=== PATIENT | female | born 1995 | race American Indian/Alaskan Native ===

== ENCOUNTER 2017-05-09 12:15 | Inpatient (IN) | payer MEDICAID ==
[2017-05-09] MEDS ORDERED: NITRATEST PAPER MC ONE (12:53)
[2017-05-09] MEDS ORDERED: MINERAL OIL PO PRN (14:10)
[2017-05-09] MEDS ORDERED: XYLOCAINE 2% INFILTRATI ONE (14:10)
[2017-05-09] MEDS ORDERED: BRETHINE SUB-Q PRN (14:10)
[2017-05-09] MEDS ORDERED: ePHEDrine SULFATE IV PRN (14:10)
[2017-05-09] MEDS ORDERED: STADOL IV PRN (14:10)
[2017-05-09] MEDS ORDERED: BRETHINE IVP PRN (14:10)
[2017-05-09] MEDS ORDERED: SUBLIMAZE IV PRN (14:10)
[2017-05-09 15:00] LABS: Hemoglobin 10.8 gm/dl (10.1-14.3); Mean Corpuscular HGB Conc 35 % (30-34); Mean Corpuscular Hemoglobin 31 pg (28-32); Mean Corpuscular Volume 89 fl (79-97); Platelet Count 359 K/mm3 (140-440); Red Blood Count 3.48 M/mm3 (3.65-5.03); Red Cell Distribution Width 13.9 % (13.2-15.2); White Blood Count 15.9 K/mm3 (4.5-11.0)
[2017-05-09] MEDS ORDERED: PITOCin/NS 30 UNIT/500ML 30 UNITS/500 ML BAG IV SCH (15:00)
[2017-05-09] MEDS ORDERED: LACTATED RINGERS 1,000 ML IV SCH (15:00)
[2017-05-09] MEDS ORDERED: PITOCin/NS 20 UNIT/1000ML DRIP 20 UNITS/1,000 ML BAG IV SCH (15:00)
--- NOTE | 2017-05-09 15:13 | History and Physical Report ---
History of Present Illness Date of examination: 05/09/17 Date of admission: 05/09/17 12:16 Chief complaint: contractions History of present illness: This is a 22 yo at 37+0 weeks admitted to labor for active labor. She began mariano last night. Patient c/o leaking . Her OB course at [facility] began late at 21 weeks and non compliance with only 3 visits. She has anemia on iron and severe eczema with creme. She has close interval conception. She has a hx of IUGR. Past History Past Medical History: other (eczema) Past Surgical History: no surgical history ADVERTISING PHOTOGRAPHER History: chlamydia, herpes Family/Genetic History: other (Kidney ) Social history: single, other (previous marijuana usage). denies: smoking, alcohol abuse - Obstetrical History Expected Date of Delivery: 05/30/17 Actual Gestation: 37 Week(s) 0 Day(s) : 7 Para: 7 Hx # Term Pregnancies: 2 Number of Pregnancies: 0 Spontaneous Abortions: 1 Induced : 3 Number of Living Children: 2 Medications and Allergies Allergies Allergy/AdvReac Type Severity Reaction Status Date / Time No Known Allergies Allergy Verified 07/12/15 18:08 Home Medications Medication Instructions Recorded Confirmed Last Taken Type Acetaminophen [Acetaminophen ER 650 mg PO Q8HR PRN #30 tablet.er 07/12/15 Unknown Rx TAB] Nitrofurantoin [place]/M-Cryst 100 mg PO Q12HR #14 capsule 07/12/15 01/13/16 Unknown Rx [Macrobid CAP] Ondansetron [Zofran Odt] 4 mg PO Q4H #30 tab.rapdis 07/12/15 01/13/16 Unknown Rx Vit-Fe Fumar-FA [ 1 tab PO QDAY #90 tablet 07/12/15 01/13/16 1 Day Ago Rx Vitamin] 1 tab Ferrous Sulfate [Feosol 325 MG tab] 325 mg PO BID #60 tablet 01/14/16 Unknown Rx Ibuprofen [Motrin 600 MG tab] 600 mg PO Q6HR PRN #40 tablet 01/14/16 Unknown Rx Active Meds: Active Medications Butorphanol Tartrate (Stadol) 2 mg IV Q2H PRN PRN Reason: Pain , Severe (7-10) Fentanyl (Sublimaze) 100 mcg IV Q2H PRN PRN Reason: Labor Pain Lactated Ringer's (Lactated Ringers) 1,000 mls @ 125 mls/hr IV DIRECT OTTO Last Admin: 05/09/17 14:53 Dose: 125 mls/hr Oxytocin/Sodium Chloride (Pitocin/Ns 20 Unit/1000ml Drip) 20 units in 1,000 mls @ 125 mls/hr IV DIRECT OTTO Oxytocin/Sodium Chloride (Pitocin/Ns 30 Unit/500ml) 30 units in 500 mls @ 1 mls /hr IV TITR OTTO; 1 MILLIUNITS/MIN PRN Reason: Protocol Mineral Oil (Mineral Oil) 30 ml PO QHS PRN PRN Reason: Constipation Review of Systems All systems: negative Genitourinary: contractions - Vital Signs Vital signs: Vital Signs Pulse BP Pulse Ox 83 112/67 99 05/09/17 12:29 05/09/17 12:29 05/09/17 12:29 Temp Pulse Resp BP Pulse Ox 98.5 F 68 16 112/67 99 05/09/17 12:32 05/09/17 13:28 05/09/17 12:32 05/09/17 12:32 05/09/17 13:28 - Physical Exam Breasts: Positive: deferred Cardiovascular: Regular rate, Normal S1 Lungs: Positive: Clear to auscultation, Normal air movement Abdomen: Positive: normal appearance, soft, normal bowel sounds. Negative: distention, tenderness Genitourinary (Female): Positive: normal external genitalia, normal perenium Uterus: Positive: normal size, normal contour Anus/Rectum: Positive: normal perianal skin Extremities: Positive: normal Deep Tendon Reflex Grade: Normal +2 - Obstetrical FHR: category 1 Uterine Contraction Monitor Mode: External Cervical Dilatation: 9 Cervical Effacement Percentage: 100 Uterine Contraction Pattern: Regular Uterine Tone Measurement Phase: Contraction Uterine Contraction Intensity: Moderate Results Result Diagrams: 05/09/17 14:34 Abnormal lab results 05/09/17 Range/Units 14:34 WBC 15.9 H (4.5-11.0) K/mm3 RBC 3.48 L (3.65-5.03) M/mm3 MCHC 35 H (30-34) % All other labs normal. Assessment and Plan A/P IUP 37 weeks active labor GBS neg initial lbas, IVF expect vaginal delivery
--- NOTE | 2017-05-09 15:42 | Procedure Note ---
OB Delivery Note - Delivery Date of Delivery: 05/09/17 Surgeon: DANUTA STEPHENS Estimated blood loss: 300cc - Vaginal Delivery presentation: vertex Delivery position: OA Intrapartum events: precipitous labor- <3hr Delivery induction: none Delivery augmentation: rupture of membranes Delivery monitor: none Route of delivery: Delivery placenta: spontaneous Delivery cord: 3 umbilical vessels Episiotomy: none Delivery laceration: none Anesthesia: none Delivery comments: Patient was noted to be c/c/+1 after arom clear fluid. Patient delivered viable female at 1520 in oa presentation pushing 2 x easily reduced shoulders. baby weighting 5 pounds 1.8 oz. The placenta delivered spontaneously intact with 3 vessel cord . Survery of perineum and vagina revealed no lacs. EBL 300cc. Placenta sent to pathology for diagnosis small for gestational age. Patient tolerated procedure well. Bonding with baby. - Infant A at 1 minute: 8 at 5 minutes: 9 Infant Gender: Female
[2017-05-09] MEDS ORDERED: PHENERGAN PO PRN (15:43)
[2017-05-09] MEDS ORDERED: PHENERGAN PR PRN (15:43)
[2017-05-09] MEDS ORDERED: TUCKS PAD TP PRN (15:43)
[2017-05-09] MEDS ORDERED: NORCO 5/325 PO PRN (15:43)
[2017-05-09] MEDS ORDERED: BENADRYL PO PRN (15:43)
[2017-05-09] MEDS ORDERED: MILK OF MAGNESIA PO PRN (15:43)
[2017-05-09] MEDS ORDERED: DULCOLAX PR PRN (15:43)
[2017-05-09] MEDS ORDERED: ZOFRAN IV PRN (15:43)
[2017-05-09] MEDS ORDERED: LANSINOH TP PRN (15:43)
[2017-05-09] MEDS ORDERED: TYLENOL PO PRN (15:43)
[2017-05-09] MEDS ORDERED: TORADOL IV PRN (15:43)
[2017-05-09] MEDS ORDERED: SODIUM CHLORIDE FLUSH SYRINGE 10 ML IV SCH (16:00)
[2017-05-09] MEDS ORDERED: PRENATAL VITAMIN PO SCH (16:00)
[2017-05-09 16:17] LABS: Bilirubin,Urine NEG (Negative); Blood,Urine NEG (Negative); Ketones,Urine NEG (Negative); Leukocyte Esterase,Urine TR (Negative); Nitrite,Urine NEG (Negative)
[2017-05-09] MEDS ORDERED: SENOKOT S PO SCH (17:00)
[2017-05-09] MEDS: MOTRIN PO SCH (18:50)
[2017-05-09] MEDS: PERCOCET 5/325 PO PRN (18:51)
[2017-05-09] MEDS: COLACE PO SCH (22:10)
[2017-05-10] MEDS: MOTRIN PO SCH ×2 (01:51→11:40)
[2017-05-10] MEDS: PERCOCET 5/325 PO PRN ×3 (01:53→17:59)
[2017-05-10 04:41] LABS: Hematocrit 32.1 % (30.3-42.9); Hemoglobin 10.7 gm/dl (10.1-14.3)
[2017-05-10] MEDS ORDERED: BOOSTRIX IM ONE (06:00)
--- NOTE | 2017-05-10 07:13 | Progress Note ---
Assessment and Plan A/P PPD#1 doing well H/H stable 10.8--10.7 routine course d/c home today f/u in 4 weeks for PP check B+ no rhogam indicated unsure of control Subjective - Subjective Date of service: 05/10/17 Principal diagnosis: s/p Interval history: This is a 22 yo at 37+0 weeks admitted to labor for active labor. She began mariano last night. Patient c/o leaking . Her OB course at [facility] began late at 21 weeks and non compliance with only 3 visits. She has anemia on iron and severe eczema with creme. She has close interval conception. She has a hx of IUGR. Patient reports: appetite normal, voiding normally, pain well controlled, flatus , ambulating normally [place]: doing well Objective - Vital Signs Latest vital signs: Vital Signs Temp Pulse Pulse Resp BP BP Pulse Ox 05/10/17 00:00 98.6 F 67 18 109/62 05/09/17 20:00 98.2 F 56 L 18 113/84 05/09/17 18:00 98.2 F 62 20 98/51 05/09/17 17:24 98.8 F 88 18 111/70 05/09/17 17:20 97.3 F L 57 L 18 111/73 05/09/17 17:17 57 L 111/73 05/09/17 17:02 64 110/72 05/09/17 16:55 97.3 F L 60 60 18 113/75 113/75 05/09/17 16:35 97.3 F L 56 L 18 131/86 05/09/17 16:32 56 L 131/86 05/09/17 16:20 97.3 F L 57 L 18 109/73 05/09/17 16:17 57 L 109/73 05/09/17 16:05 97.3 F L 59 L 56 L 18 114/77 100 05/09/17 16:02 56 L 114/77 05/09/17 16:00 54 L 100 05/09/17 15:55 57 L 100 05/09/17 15:50 56 L 100 05/09/17 15:45 97.3 F L 54 L 55 L 18 132/80 100 05/09/17 15:44 55 L 132/80 05/09/17 13:28 68 99 05/09/17 13:23 63 100 05/09/17 13:18 67 98 05/09/17 13:14 80 87 05/09/17 13:13 72 98 05/09/17 13:08 75 99 05/09/17 13:03 72 100 05/09/17 12:58 69 100 05/09/17 12:53 86 100 05/09/17 12:38 67 71 L 05/09/17 12:35 83 99 05/09/17 12:32 98.5 F 88 16 112/67 99 05/09/17 12:29 83 112/67 99 Intake and Output 05/09/17 05/10/17 05/10/17 22:59 06:59 14:59 Output Total 400 Balance -400 Output: Urine 400 Void 400 Other: Total, Output Amount 400 # Voids Void 1 Estimated Blood Loss 300 - Exam Breasts: Present: normal Cardiovascular: Present: Regular rate, Normal S1 Lungs: Present: Clear to auscultation, Normal air movement Abdomen: Present: normal appearance, soft, normal bowel sounds. Absent: distention, tenderness, guarding Vulva: both: normal Uterus: Present: normal, firm, fundal height below umbilicus. Absent: bogginess , tenderness Extremities: Present: normal. Absent: edema Deep Tendon Reflex Grade: Normal +2 Incision: Present: normal, dry - Labs Labs: Abnormal lab results 05/09/17 Range/Units 14:34 WBC 15.9 H (4.5-11.0) K/mm3 RBC 3.48 L (3.65-5.03) M/mm3 MCHC 35 H (30-34) %
--- NOTE | 2017-05-10 07:14 | Discharge Summary ---
Providers - Providers Date of Admission: 05/09/17 12:16 Date of discharge: 05/10/17 Attending physician: DANUTA STEPHENS MD Primary care physician: DANUTA STEPHENS MD Hospitalization Reason for admission: active labor, IUP - , IUP at term Delivery: Episiotomy: none Laceration: none Incision: normal, dry, intact Other procedures: none complications: none Discharge diagnosis: delivery [place] baby: female Condition at discharge: Good Disposition: DC-01 TO HOME OR SELFCARE Plan - Provider Discharge Summary Activity: routine, no sex for 6 weeks Diet: routine Instructions: routine Additional instructions: [] Smoking cessation referral if applicable(refer to patient education folder for contact #) [] Refer to [facility]'s [facility] Booklet Call your doctor immediately for: * Fever > 100.5 * Heavy vaginal bleeding ( >1 pad per hour) * Severe persistent headache * Shortness of breath * Reddened, hot, painful area to leg or breast * Drainage or odor from incision. * Keep incision clean and dry at all times and follow doctor's instructions regarding bathing/showering - Follow up plan Follow up: DANUTA STEPHENS MD [Primary Care Provider] - 06/09/17
[2017-05-10] MEDS: COLACE PO SCH (11:40)
[2017-05-10] MEDS ORDERED: M-M-R II VACCINE SUB-Q ONE (15:43)
[2017-05-10 18:11] VITALS: BP 111/64
== END 2017-05-10 20:40 | disposition home or self-care (01) | DRG 775 ==
LOC: TRG 12:15 → LD 12:16 → OB 18:45
PROVIDERS: ADMIT Obstetrics & Gynecology; ATTEND Obstetrics & Gynecology
PROC: 10E0XZZ Delivery of Products of Conception, External Approach (ICD-10-PCS; principal; 2017-05-09)
PROC: 3E0234Z Introduction of Serum, Toxoid and Vaccine into Muscle, Percutaneous Approach (ICD-10-PCS; 2017-05-09)
DX: O60.14X0 Preterm labor third trimester with preterm delivery third trimester, not applicable or unspecified (principal); O99.02 Anemia complicating childbirth; D64.9 Anemia, unspecified; O62.3 Precipitate labor; Z3A.37 37 weeks gestation of pregnancy; Z37.0 Single live birth; Z23 Encounter for immunization
CPT/HCPCS: 36415; 81001; 85014; 85018; 85027; 86592; 86850; 86900; 86901; 88307; 99211; G0463; J2590; J3010; J7120

== ENCOUNTER 2017-10-14 21:37 | Emergency (ER) | payer MEDICAID ==
[2017-10-14 23:16] VITALS: BP 101/63
[2017-10-15 00:26] LABS: Basophils % (Auto) 1.2 % (0.0-1.8); Eosinophils % (Auto) 6.1 % (0.0-4.3); Hematocrit 34.7 % (30.3-42.9); Hemoglobin 11.4 gm/dl (10.1-14.3); Mean Corpuscular HGB Conc 33 % (30-34); Mean Corpuscular Hemoglobin 29 pg (28-32); Mean Corpuscular Volume 89 fl (79-97); Platelet Count 377 K/mm3 (140-440); Red Cell Distribution Width 14.6 % (13.2-15.2); White Blood Count 9.4 K/mm3 (4.5-11.0)
[2017-10-15 00:54] LABS: Alanine Aminotransferase 12 units/L (7-56); Albumin/Globulin Ratio 1.2 %; Alkaline Phosphatase 43 units/L (35-129); Anion Gap 18 mmol/L; BUN/Creatinine Ratio 18; Blood Urea Nitrogen 9 mg/dL (7-17); Calcium 9.2 mg/dL (8.4-10.2); Carbon Dioxide 21 mmol/L (22-30); Chloride 104.7 mmol/L (98-107); Glucose 104 mg/dL (65-100); Lipase 26 units/L (13-60); Potassium 3.7 mmol/L (3.6-5.0); Sodium 140 mmol/L (137-145); Total Protein 7.4 g/dL (6.3-8.2)
[2017-10-15 02:38] LABS: Mucus,Urine 3+ /HPF
[2017-10-15 02:45] LABS: Leukocyte Esterase,Urine Negative (Negative); Nitrite,Urine Negative (Negative)
[2017-10-15 02:46] LABS: Bilirubin,Urine Negative (Negative); Blood,Urine Negative (Negative); Ketones,Urine Negative (Negative); Urobilinogen,Urine < 2.0 mg/dL (<2.0)
== END 2017-10-15 02:43 | disposition left against medical advice (07) ==
LOC: ED 21:37
DX: R10.9 Unspecified abdominal pain (principal); Z53.21 Procedure and treatment not carried out due to patient leaving prior to being seen by health care provider
CPT/HCPCS: 36415; 80053; 81001; 81025; 83690; 85025